=== PATIENT | female | born 1980 | race African-American/Black ===

== ENCOUNTER 2016-12-18 15:02 | Emergency (ER) | payer SELFPAY ==
--- NOTE | ~2016-12-18 | ER ---
PATIENT'S NAME: JUAN THOMAS [facility] AGE: 36 Y [address] ROOM: [place] [address] LOCATION: [facility] ADMIT DATE: 12/18/2016 ER/Outpatient Report DISCHARGE DATE: 12/18/2016 FAMILY PHYSICIAN: PHYSICIAN, NO ATTENDING PHYSICIAN: Familia Mcnulty Admission date and time documented in the medical record. I saw the patient at 1515 hours. CHIEF COMPLAINT: Right earache. HISTORY OF PRESENT ILLNESS: This patient is a 36-year-old female, who comes in with a 3-week history of right ear pain progressively worsening. She has some drainage from the right ear. Drainage started on Saturday. No fever, chills, or sweats. No coughs, colds, or flus. HOME MEDICATIONS: See attached medication list. ALLERGIES: NONE. SOCIAL HISTORY: The patient smokes a pack of cigarettes per day. Nondrinker. SIGNIFICANT PAST MEDICAL HISTORY: Negative except for tobacco abuse. PAST SURGICAL HISTORY: Appendectomy. REVIEW OF SYSTEMS: All systems reviewed by me are negative with the exception of those discussed in the history of the present illness. PHYSICAL EXAMINATION: VITAL SIGNS: Temperature 96.3 by temporal scanner, pulse 102, respirations 16, blood pressure 130/79, and O2 saturation on room air is 96%. HEAD: Normocephalic. EYES: Clear. EARS: Left TM clear, canal clear. Right canal is a little bit inflamed. TM is dull, nonreactive. NOSE AND THROAT: Clear. PATIENT'S NAME: JUAN THOMAS [facility] AGE: 36 Y [address] ROOM: [place] [address] LOCATION: [facility] ADMIT DATE: 12/18/2016 ER/Outpatient Report DISCHARGE DATE: 12/18/2016 FAMILY PHYSICIAN: PHYSICIAN, NO ATTENDING PHYSICIAN: Familia Mcnulty NECK: Negative. IMPRESSION: Right otitis media with some inflammation of the ear canal. PLAN: The patient dismissed home. Observation. Activity as tolerated. Cortisporin otic drops use as directed 3 times a day, right ear. Amoxicillin 500 mg 3 times a day #30. Tylenol or ibuprofen every 4-6 hours as needed for pain. Follow up with personal physician as needed or if no improvement in 10 days. Discussed with the patient concerning my findings and recommendations. She understands. MD TENZIN SIFUENTES/brock /[id number] d: 12/18/162 t: 12/21/16 1813, OUTPATIENT REPORT
== END 2016-12-18 15:47 | disposition disaster alternative care site (69) ==
LOC: GMED 15:02
DX: H66.91 Otitis media, unspecified, right ear (principal); H60.91 Unspecified otitis externa, right ear; F17.210 Nicotine dependence, cigarettes, uncomplicated; Z90.49 Acquired absence of other specified parts of digestive tract; Z79.899 Other long term (current) drug therapy